=== PATIENT | female | born 1995 | race American Indian/Alaskan Native ===

== ENCOUNTER 2021-06-28 11:52 | Emergency (ER) | payer SELFPAY ==
--- NOTE | 2021-06-28 12:58 | Emergency Department Report ---
ED Female HPI - General Chief complaint: Urogenital-Female Stated complaint: VAGINAL ITCHING Time Seen by Provider: 06/28/21 12:11 Source: patient Mode of arrival: Ambulatory Limitations: No Limitations - History of Present Illness Initial comments: 26-year-old female with a past medical history of hypertension, diabetes presents to the ER today with complaints of vaginal itching, soreness to the vaginal area and sometimes bleeding when she would itch the area. She reports that she has had a white vaginal discharge. She denies any associated abdominal pain, pelvic pain or lower back pain. She states that she last had sexual intercourse sometime in May, with her usual sexual partner but unprotected. She reports no UTI symptoms. She reports no fever or chills. She is not currently on any control. MD Complaint: other (Vaginal itching/ discharge ) -: days(s) (2) - Related Data Previous Rx's Medication Instructions Recorded Last Taken Type DOXYCYCLINE Hyclate [Vibramycin 100 mg PO Q12HR #14 capsule 06/28/21 Unknown Rx CAP] Fluconazole [Diflucan TAB] 200 mg PO QDAY #2 tablet 06/28/21 Unknown Rx Ibuprofen [Motrin] 600 mg PO Q8H PRN #30 tablet 06/28/21 Unknown Rx Valacyclovir HCl [Valtrex] 1,000 mg PO BID #20 tablet 06/28/21 Unknown Rx metroNIDAZOLE [Flagyl] 500 mg PO Q12HR #14 tab 06/28/21 Unknown Rx Allergies Allergy/AdvReac Type Severity Reaction Status Date / Time No Known Allergies Allergy Unverified 06/28/21 11:58 ED Review of Systems ROS: Stated complaint: VAGINAL ITCHING Other details as noted in HPI Comment: All other systems reviewed and negative Constitutional: denies: chills, fever Eyes: denies: eye pain, eye discharge, vision change ENT: denies: ear pain, throat pain Respiratory: denies: cough, shortness of breath, wheezing Cardiovascular: denies: chest pain, palpitations Gastrointestinal: denies: abdominal pain, nausea, vomiting, diarrhea, constipation, hematemesis, hematochezia Genitourinary: discharge, other (Vaginal itching and soreness). denies: urgency, dysuria, frequency, hematuria, abnormal menses, dyspareunia Musculoskeletal: denies: back pain, joint swelling, arthralgia Skin: denies: rash, lesions Neurological: denies: headache, weakness, numbness, paresthesias, confusion, abnormal gait, vertigo Psychiatric: denies: anxiety, depression, auditory hallucinations, visual hallucinations, homicidal thoughts, suicidal thoughts Hematological/Lymphatic: denies: easy bleeding, easy bruising ED Past Medical Hx - Medications Home Medications: Home Medications Medication Instructions Recorded Confirmed Last Taken Type DOXYCYCLINE Hyclate [Vibramycin 100 mg PO Q12HR #14 capsule 06/28/21 Unknown Rx CAP] Fluconazole [Diflucan TAB] 200 mg PO QDAY #2 tablet 06/28/21 Unknown Rx Ibuprofen [Motrin] 600 mg PO Q8H PRN #30 tablet 06/28/21 Unknown Rx Valacyclovir HCl [Valtrex] 1,000 mg PO BID #20 tablet 06/28/21 Unknown Rx metroNIDAZOLE [Flagyl] 500 mg PO Q12HR #14 tab 06/28/21 Unknown Rx ED Physical Exam - General Limitations: No Limitations General appearance: alert, in no apparent distress - Head Head exam: Present: atraumatic, normocephalic, normal inspection - Eye Eye exam: Present: normal appearance, PERRL, EOMI Pupils: Present: normal accommodation - Respiratory Respiratory exam: Present: normal lung sounds bilaterally. Absent: respiratory distress - Cardiovascular Cardiovascular Exam: Present: regular rate - GI/Abdominal GI/Abdominal exam: Present: soft. Absent: distended, tenderness, guarding, rebound - External exam: Present: lesions (Few very small shallow ulcerated lesions noted to the labia minora, and around the introitus and they are tender to palpate.), other (Buhr Dresser present at time of exam). Absent: erythema, swelling Speculum exam: Present: vaginal discharge (Small amount of white discharge noted). Absent: cervical discharge, vaginal bleeding, foreign body, tissue, laceration Bi-manual exam: Absent: cervical motion tendernes, adnexal tenderness, adnexal mass, uterine enlargement, uterine tenderness - Back Exam Back exam: Present: normal inspection - Neurological Exam Neurological exam: Present: alert, oriented X3, CN II-XII intact, normal gait - Psychiatric Psychiatric exam: Present: normal affect, normal mood - Skin Skin exam: Present: intact ED Course Vital Signs 06/28/21 11:56 Temperature 98.6 F Pulse Rate 106 H Respiratory 18 Rate Blood Pressure 148/76 [Right] O2 Sat by Pulse 99 Oximetry ED Medical Decision Making - Medical Decision Making 1455: Genital exam shows superficial shallow ulcerated area concerning for genital herpes. Patient wet prep positive for trichomonas and bacterial vaginosis. Discussed all results with patient. Patient will also be treated prophylactically for gonorrhea and chlamydia. Informed patient and her partner also need to be tested and treated. I also recommend that she follow-up with her [facility] for additional STD testing including HIV and hepatitis. Patient currently stable. She is not toxic or ill-appearing. Patient expressed onset of all instructions and agree with plan. Patient was stable at time of discharge. Critical care attestation.: If time is entered above; I have spent that time in minutes in the direct care of this critically ill patient, excluding procedure time. ED Disposition Clinical Impression: Genital herpes, Trichomonas vaginitis, Bacterial vaginosis Disposition: HOME / SELF CARE / HOMELESS Is pt being admited?: No Does the pt Need Aspirin: No Condition: Stable Instructions: Bacterial Vaginosis, Genital Herpes, Trichomoniasis, Bacterial Vaginosis (ED) Additional Instructions: I recommend that you take the Flagyl (for BV and Trichomonas) as prescribed to completion. Do not drink while taking the Flagyl as it can cause severe nausea and vomiting. Take the Valtrex as prescribed (for genital herpes). Take the doxycyline as prescribed for possible (chlamydia). I recommend that you take the doxycycline and the Flagyl with food as taking both cause GI upset. Take the diflucan as prescribed after you finish the course of antibiotics. Your partner will also need to get tested and treated. I Do recommend that you follow-up with your [facility] for additional STD testing. Return to the ER if your symptoms changes or worsens in any way. Prescriptions: Fluconazole [Diflucan TAB] 200 mg PO QDAY #2 tablet metroNIDAZOLE [Flagyl] 500 mg PO Q12HR #14 tab Ibuprofen [Motrin] 600 mg PO Q8H PRN #30 tablet PRN Reason: Pain Valacyclovir HCl [Valtrex] 1,000 mg PO BID #20 tablet DOXYCYCLINE Hyclate [Vibramycin CAP] 100 mg PO Q12HR #14 capsule Referrals: [facility] [Provider Group] - 3-5 Days [facility] [Provider Group] - 3-5 Days Forms: STI Treatment and Prevention Time of Disposition: 14:46
[2021-06-28 14:31] LABS: Bilirubin,Urine NEG (Negative); Blood,Urine NEG (Negative); Color,Urine Yellow (Yellow); Mucus,Urine FEW /HPF; Protein,Urine <15 mg/dL mg/dL (Negative); Urobilinogen,Urine < 2.0 mg/dL (<2.0)
[2021-06-28 14:43] LABS: HCG Qualitative,Urine Negative (Negative)
[2021-06-28] MEDS ORDERED: LIDOCAINE-MPF (1%) 10 MG/1 ML VIAL 5 ML INFILTRATI ONE (14:48)
[2021-06-28 15:15] VITALS: BP 128/73
== END 2021-06-28 15:13 | disposition home or self-care (01) ==
LOC: ED 11:52
DX: A60.00 Herpesviral infection of urogenital system, unspecified (principal); A59.01 Trichomonal vulvovaginitis; N76.0 Acute vaginitis; B96.89 Other specified bacterial agents as the cause of diseases classified elsewhere; Z79.899 Other long term (current) drug therapy
CPT/HCPCS: 81001; 81025; 87210; 96372; 99284; J0696